=== PATIENT | male | born 1945 | race Hispanic/Latino ===

== ENCOUNTER 2019-04-13 16:55 | Emergency (ER) | payer MEDICARE ==
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
[2019-04-13] MEDS ORDERED: IPRATROPIUM 0.02% NEBU 2.5 ML IH ONE (18:05)
[2019-04-13] MEDS ORDERED: ALBUTEROL 2.5 MG/3 ML NEBU IH ONE (18:05)
[2019-04-13] MEDS ORDERED: MAGNESIUM SULFATE 2 GM/50 ML BAG IV ONE (18:05)
[2019-04-13] MEDS ORDERED: methylPREDNISolone Sod Succinate 125 MG/2 ML INJ IV ONE (18:05)
[2019-04-13 18:32] LABS: Basophils # (Auto) 0.2 K/mm3 (0.0-0.1); Eosinophils # (Auto) 0.2 K/mm3 (0.0-0.4); Eosinophils % (Auto) 1.8 % (0.0-4.3); Lymphocytes # (Auto) 2.2 K/mm3 (1.2-5.4); Lymphocytes % (Auto) 20.2 % (13.4-35.0); Mean Corpuscular HGB Conc 33 % (32-34); Mean Corpuscular Volume 92 fl (84-94); Monocytes # (Auto) 0.8 K/mm3 (0.0-0.8); Monocytes % (Auto) 7.4 % (0.0-7.3); Platelet Count 313 K/mm3 (140-440); Red Cell Distribution Width 13.6 % (13.2-15.2)
[2019-04-13 18:39] LABS: Hemoglobin 20.1 gm/dl (11.8-15.2)
[2019-04-13 18:40] LABS: Hematocrit 60.8 % (35.5-45.6)
[2019-04-13 18:51] LABS: BUN/Creatinine Ratio 19; Blood Urea Nitrogen 21 mg/dL (9-20); Calcium 10.1 mg/dL (8.4-10.2); Hemolysis Index 20; INR 1.2 (0.87-1.13)
[2019-04-13 18:52] LABS: Partial Thromboplastin Time 30.7 Sec. (24.2-36.6)
[2019-04-13 19:05] VITALS: BP 120/75
[2019-04-13 19:22] LABS: Alanine Aminotransferase 29 units/L (7-56); Albumin 3.7 g/dL (3.9-5)
--- NOTE | 2019-04-13 19:29 | XRay Report ---
CHEST 1 VIEW INDICATION / CLINICAL INFORMATION: Dyspnea. COMPARISON: 02/18/2014 FINDINGS: SUPPORT DEVICES: None. HEART / MEDIASTINUM: Heart size is normal with left ventricular configuration. LUNGS / PLEURA: Linear densities in the right lower lung represent scarring and are not significantly changed. No acute pulmonary or pleural disease. No pneumothorax. ADDITIONAL FINDINGS: No significant additional findings. IMPRESSION: 1. No acute findings. Signer Name: Leo Ricks MD Signed: 04/13/2019 7:24 PM Workstation Name: [id number]
== END 2019-04-13 20:20 | disposition left against medical advice (07) ==
LOC: ED 16:55
DX: J44.9 Chronic obstructive pulmonary disease, unspecified (principal); I10 Essential (primary) hypertension; Z79.899 Other long term (current) drug therapy; Z85.828 Personal history of other malignant neoplasm of skin; Z98.890 Other specified postprocedural states
CPT/HCPCS: 36415; 71045; 80053; 84484; 85025; 85610; 85730; 93005; 93010; 96365; 96375; 99284; J2930; J3475